=== PATIENT | male | born 1970 | race Caucasian/White ===

== ENCOUNTER 2017-06-07 00:29 | Emergency (ER) | payer BC ==
--- NOTE | 2017-06-07 02:04 | ER Document Report ---
ED General - General Chief Complaint: Back Injury Stated Complaint: BACK INJURY Time Seen by Provider: 06/07/17 01:15 Mode of Arrival: Ambulatory Information source: Patient Notes: 46-year-old male with a history of ADHD not currently on medications presents with complaint of low back pain that started 8 hours prior to arrival. Patient states that he was squatting 595 pounds earlier today when he developed discomfort in his lower back. He states since that time he has had a throbbing pain in his lumbar region along the paraspinal musculature. He does report a "vibration" down his right leg. He denies any leg weakness, urinary retention, fecal incontinence or saddle anesthesia. He denies any prior back injury. He has not tried taking any medication for this because "I cannot take any medication on this earth because it messes with my metabolism". He has not tried ice or heat. He denies fever, chills, chest pain, shortness of breath, upper back or neck pain, abdominal pain, urinary retention or fecal incontinence. TRAVEL OUTSIDE OF THE [place] IN LAST 30 DAYS: No - HPI Onset: This afternoon Onset/Duration: Sudden, Persistent Quality of pain: Achy, Throbbing Severity: Mild Associated symptoms: None Exacerbated by: Movement, Walking Relieved by: Remaining still Similar symptoms previously: No Recently seen / treated by doctor: No - Related Data Allergies/Adverse Reactions: No Known Allergies Allergy (Unverified 06/07/17 00:33) Past Medical History - General Information source: Patient - Social History Smoking Status: Unknown if Ever Smoked Chew tobacco use (# tins/day): No Frequency of alcohol use: Rare Drug Abuse: None Lives with: Family Family History: Reviewed & Not Pertinent Patient has suicidal ideation: No Patient has homicidal ideation: No - Medical History Medical History: Other - ADHD Renal/ Medical History: Denies: Hx Peritoneal Dialysis Review of Systems - Review of Systems Notes: He denies fever, chills, chest pain, shortness of breath, upper back or neck pain, abdominal pain, urinary retention or fecal incontinence, saddle anesthesia. Physical Exam - Vital signs Vitals: Temp Pulse Resp BP Pulse Ox 98.4 F 65 20 139/80 H 94 06/07/17 00:44 06/07/17 00:44 06/07/17 00:44 06/07/17 00:44 06/07/17 00:44 Interpretation: Normal, Hypertensive. No: Hypoxic, Febrile Notes: PHYSICAL EXAMINATION: GENERAL: Well-appearing, well-nourished and in no acute distress. HEAD: Atraumatic, normocephalic. EYES: Pupils equal round and reactive to light, extraocular movements intact, sclera anicteric, conjunctiva are normal. ENT: Nares patent, oropharynx clear without exudates. Moist mucous membranes. NECK: Normal range of motion, supple without lymphadenopathy LUNGS: Breath sounds clear to auscultation bilaterally and equal. No wheezes rales or rhonchi. HEART: Regular rate and rhythm without murmurs ABDOMEN: Soft, nontender, nondistended abdomen. No guarding, no rebound. No masses appreciated. Musculoskeletal: Normal range of motion, no pitting or edema. No cyanosis. Tender to palpation over the paraspinal musculature of the lumbar spine. No spinal tenderness. Tender to palpation over the sacrum. NEUROLOGICAL: Cranial nerves grossly intact. Normal speech, normal gait. Normal sensory, motor exams. Patient ambulates slowly but without difficulty. He is able to go up on his toes and up on his heels. 5/5 strength in dorsi and plantar flexion. Straight leg negative bilaterally. PSYCH: Normal mood, normal affect. SKIN: Warm, Dry, normal turgor, no rashes or lesions noted. Course - Re-evaluation Re-evalutation: Lumbar Spine X-Ray 06/07/17 01:57 IMPRESSION: No acute abnormality of the lumbar spine by plain film criteria. Pelvis X-Ray 06/07/17 01:57 IMPRESSION: No acute fracture or dislocation. 06/07/17 23:09 46-year-old male with a history of ADHD not currently on medications presents with complaint of low back pain that started 8 hours prior to arrival. Patient states that he was squatting 595 pounds earlier today when he developed discomfort in his lower back. He states since that time he has had a throbbing pain in his lumbar region along the paraspinal musculature. He does report a "vibration" down his right leg. He denies any leg weakness, urinary retention, fecal incontinence or saddle anesthesia. He denies any prior back injury. He has not tried taking any medication for this because "I cannot take any medication on this earth because it messes with my metabolism". He has not tried ice or heat. He denies fever, chills, chest pain, shortness of breath, upper back or neck pain, abdominal pain, urinary retention or fecal incontinence. Vital signs stable upon arrival. Patient does not appear toxic or dehydrated. He is in no acute distress. Patient has a normal neurologic exam. He is able to ambulate independently. He does have tenderness over the paraspinal musculature of the lumbar spine bilaterally and midline tenderness of the sacrum. X-rays of pelvis and lumbar spine were obtained and showed no acute process. Patient was offered medication multiple times and he declines. He was advised to ice the areas of pain, stretch. He inquired whether he had a ruptured disc and I explained to him that that is hard to assess with x-rays, and that would require MRI imaging which is not available at this time or warranted by his physical exam. I advised that he follow-up with his primary care physician Dr. Roman if he continues to have pain. Was discharged home in stable condition - Vital Signs Vital signs: Temp Pulse Resp BP Pulse Ox 98.1 F 68 16 137/83 H 99 06/07/17 03:00 06/07/17 03:00 06/07/17 03:00 06/07/17 03:00 06/07/17 03:00 Discharge - Discharge Clinical Impression: Lumbar strain Qualifiers: Encounter type: initial encounter Qualified Code(s): S39.012A - Strain of muscle, fascia and tendon of lower back, initial encounter Condition: Good Disposition: HOME, SELF-CARE Instructions: Ice Packs ([facility]), Low Back Pain ([facility]), Muscle Strain ([facility]) Additional Instructions: Please follow-up with your primary care physician Dr. Hairston
--- NOTE | 2017-06-07 02:28 | RADIOLOGY REPORT (SQ) ---
EXAM DESCRIPTION: L SPINE WHOLE CLINICAL HISTORY: pain COMPARISON: None. FINDINGS: 5 views of the lumbar spine. 5 nonrib-bearing lumbar vertebrae. Vertebral body height and intervertebral disc height preserved. No subluxation. No abnormalities of visualized sacrum or coccyx. Visualized pelvic bones are intact. No spondylolysis or spondylolisthesis identified. Abdominal soft tissues are unremarkable. Pedicles identified throughout. IMPRESSION: No acute abnormality of the lumbar spine by plain film criteria.
--- NOTE | 2017-06-07 02:28 | RADIOLOGY REPORT (SQ) ---
EXAM DESCRIPTION: PELVIS AP CLINICAL HISTORY: pain COMPARISON: None. FINDINGS: Single view of the pelvis. No acute fracture or dislocation. Pelvic soft tissues unremarkable. Hip joint spaces preserved. Normal osseous mineralization. IMPRESSION: No acute fracture or dislocation.
[2017-06-07 03:01] VITALS: BP 137/83
== END 2017-06-07 03:06 | disposition home or self-care (01) ==
LOC: ER 00:29
DX: S39.012A Strain of muscle, fascia and tendon of lower back, initial encounter (principal); X58.XXXA Exposure to other specified factors, initial encounter
CPT/HCPCS: 72110; 72170; 99283